=== PATIENT | male | born 1975 | race Caucasian/White ===

== ENCOUNTER 2021-08-19 12:58 | Emergency (ER) | payer BC, SELFPAY ==
[2021-08-19] VITALS (16 sets, daily range): BP systolic 143–167; BP diastolic 87–109; PULSE 106–119; RESP 10–24; TEMP 36.8; O2SAT 95–100
--- NOTE | 2021-08-19 13:03 | ECG_ITS ---
Measurements Intervals [place] Rate: 114 P: 53 MO: 127 QRS: 67 QRSD: 82 T: 56 QT: 315 QTc: 435 Interpretive Statements SINUS TACHYCARDIA OTHERWISE NORMAL ECG NO PREVIOUS ECG AVAILABLE FOR COMPARISON Electronically Signed On 08-19-2021 15:44:47 CDT by Ramsey Kim M.D.
--- NOTE | 2021-08-19 13:04 | ED.ARRPALP ---
HPI - Arrhythmia/Palpitations General Chief Complaint: Arrhythmia/Palpitations Stated Complaint: increased heart rate Time Seen by Provider: 08/19/21 13:02 Source: patient and EMS Mode of arrival: EMS Limitations: no limitations History of Present Illness HPI narrative: Pt felt a little lightheaded and his heart was racing. Pt here working for [employer] and went to local , pulse in 200's called 911. On EMS arrival HR in 240's, SVT on 12 lead, given adenosine 6 mg without conversion and then 12 which converted. Pt feel fine now. Pt has a history of SVT but is usually able to convert himself. Pt says the spell lasted 15-20 minutes. Related Data Home Medications Medication Instructions Recorded Confirmed atorvastatin 40 mg PO DAILY 08/19/21 bupropion HCl 150 mg PO QAM 08/19/21 lisinopril 40 mg PO DAILY 08/19/21 nystatin 1 ml PO QID 08/19/21 omeprazole 20 mg PO DAILY 08/19/21 sildenafil 100 mg PO DAILY 08/19/21 Allergies Allergy/AdvReac Type Severity Reaction Status Date / Time ibuprofen Allergy Hives Verified 08/19/21 13:10 Review of Systems Review of Systems: All systems reviewed & are unremarkable except as noted in HPI and below Exam Const: General: no acute distress Orientation/consciousness: patient oriented x3 HENMT: Head: normal to inspection Eyes: Conjunctivae: conjunctivae normal EOM: EOMs intact bilaterally Chest: Chest palpation & inspection: normal inspection of the chest Resp: Effort & Inspection: normal respiratory effort Auscultation: clear to auscultation bilaterally Cardio: Rate: regular rate Rhythm: regular rhythm GI: GI Palp: Yes Soft to palpation Auscultation: normal bowel sounds Skin: General skin exam: normal color Neuro: General: patient oriented x3, moves all extremities, no focal motor deficits and CN's II-XI intact bilaterally Cranial nerves: Yes Nystagmus not present Speech: normal speech Extrem: General: no clubbing, cyanosis or edema Psych: Appearance: grossly normal Mental Status: mental status grossly normal Affect: normal affect Thought content: Yes Normal thought content present Course Vital Signs Vital signs: Vital Signs Temperature 98.3 F 08/19/21 12:58 Pulse Rate 114 H 08/19/21 12:58 Respiratory Rate 19 08/19/21 12:58 Blood Pressure 167/109 H 08/19/21 12:58 Pulse Oximetry 97 08/19/21 12:58 Temperature 98.3 F 08/19/21 12:58 Pulse Rate 108 H 08/19/21 14:47 Respiratory Rate 20 08/19/21 14:47 Blood Pressure 162/98 H 08/19/21 14:47 Pulse Oximetry 98 08/19/21 14:47 MDM - Arrhythmia/Palpitations Lab Data Result diagrams: 08/19/21 13:07 08/19/21 13:07 Labs: Lab Results 08/19/21 08/19/21 08/19/21 Range/Units 13:07 13:07 13:07 WBC 8.9 (4.5-10.0) K/mm3 RBC 4.91 (4.6-6.20) M/mm3 Hgb 16.2 (14.0-18.0) g/dL Hct 48.7 (42.0-52.0) % MCV 99.2 (80-100) fl MCH 33.0 (26-34) pg MCHC 33.3 (32-36) g/dl RDW 12.4 (11.5-14.5) % Plt Count 236 (150-375) k/mm3 MPV 10.2 (7.4-10.4) fl Immature Gran % (Auto) 0.4 (0-0.5) % Neut % (Auto) 58.2 (45.5-73.1) % Lymph % (Auto) 32.2 (18.3-44.2) % [place] % (Auto) 7.6 (2.6-8.5) % Eos % (Auto) 0.9 (0-4.4) % Baso % (Auto) 0.7 (0.2-1.2) % Lymph # (Auto) 2.87 (0.9-3.2) K/mm3 [place] # (Auto) 0.7 H (0.1-0.6) K/mm3 Eos # (Auto) 0.1 (0-0.3) K/mm3 Baso # (Auto) 0.1 (0.0-0.1) K/mm3 Abs Immat Gran (auto) 0.04 H (0.00-0.031) K/mm3 Absolute Neuts (auto) 5.2 (1.3-6.7) K/mm3 Absolute Nucleated RBC 0.0 (0.0-0.012) K/mm3 Nucleated RBC % 0.0 (0.0-0.2) % PT 14.1 (11.1-14.7) Seconds INR 1.1 APTT 27.4 (22.3-36.8) SECONDS Sodium 139 (137-145) mmol/L Potassium 4.2 (3.4-5.0) mmol/L Chloride 104 (98-107) mmol/L Carbon Dioxide 24 (22-30) mmol/L Anion Gap 11 (8-16) mmol/L BUN 11 (9-20) mg/dL Creatinine 0.90 (0.7-1.3) mg/dL
[2021-08-19 13:45] LABS: Basophils Absolute Auto 0.1 K/mm3 (0.0-0.1); Basophils Percent Auto 0.7 % (0.2-1.2); Eosinophils Absolute Auto 0.1 K/mm3 (0-0.3); Eosinophils Percent Auto 0.9 % (0-4.4); Hematocrit 48.7 % (42.0-52.0); Hemoglobin 16.2 g/dL (14.0-18.0); Immature Granulocyte Absolute 0.04 K/mm3 (0.00-0.031); Immature Granulocyte Percent A 0.4 % (0-0.5); Lymphocytes Absolute Auto 2.87 K/mm3 (0.9-3.2); Lymphocytes Percent Auto 32.2 % (18.3-44.2); Mean Corpuscular HGB Conc 33.3 g/dl (32-36); Mean Corpuscular Volume 99.2 fl (80-100); Mean Platelet Volume 10.2 fl (7.4-10.4); Monocytes Absolute Auto 0.7 K/mm3 (0.1-0.6); Monocytes Percent Auto 7.6 % (2.6-8.5); Neutrophils Absolute Auto 5.2 K/mm3 (1.3-6.7); Neutrophils Percent Auto 58.2 % (45.5-73.1); Platelet Count Result 236 k/mm3 (150-375); Red Blood Count 4.91 M/mm3 (4.6-6.20); Red Cell Distribution Width 12.4 % (11.5-14.5); White Blood Count 8.9 K/mm3 (4.5-10.0)
[2021-08-19 14:03] LABS: INR 1.1; Prothrombin Time 14.1 Seconds (11.1-14.7)
[2021-08-19 14:04] LABS: Partial Thromboplastin Time 27.4 SECONDS (22.3-36.8)
[2021-08-19 14:13] LABS: Alanine Aminotransferase 68 U/L (4-50); Albumin Level 4.6 g/dL (3.5-5.1); Alkaline Phosphatase 107 U/L (38-126); Anion Gap 11 mmol/L (8-16); Aspartate Amino Transferase 76 U/L (17-59); Bilirubin,Total 0.7 mg/dL (0.2-1.3); Blood Urea Nitrogen 11 mg/dL (9-20); Calcium 9.1 mg/dL (8.4-10.2); Carbon Dioxide 24 mmol/L (22-30); Chloride 104 mmol/L (98-107); Estimated CRCL calculation 114 ml/min; Estimated Glomerular Filt Rate > 60; Glucose 152 mg/dL (65-110); Potassium 4.2 mmol/L (3.4-5.0); Sodium 139 mmol/L (137-145)
[2021-08-19 14:14] LABS: Troponin I < 0.012 ng/mL (0.000-0.034)
== END 2021-08-19 14:30 | disposition home or self-care (01) ==
PROVIDERS: Emergency Provider Emergency Medicine
DX: I47.1 Supraventricular tachycardia (principal)
CPT/HCPCS: 36415; 80053; 84484; 85025; 85610; 85730; 93005; 99284